=== PATIENT | male | born 1970 | race American Indian/Alaskan Native ===

== ENCOUNTER 2019-11-05 09:45 | Emergency (ER) | payer MEDICARE ==
[2019-11-05 10:06] VITALS: BP 126/81
[2019-11-05 10:48] LABS: Basophils % (Auto) 1.2 % (0.0-1.8); Eosinophils # (Auto) 0.1 K/mm3 (0.0-0.4); Eosinophils % (Auto) 3.6 % (0.0-4.3); Hematocrit 50.8 % (35.5-45.6); Lymphocytes # (Auto) 1.1 K/mm3 (1.2-5.4); Lymphocytes % (Auto) 27.4 % (13.4-35.0); Mean Corpuscular HGB Conc 34 % (32-34); Mean Corpuscular Volume 91 fl (84-94); Monocytes # (Auto) 0.5 K/mm3 (0.0-0.8); Monocytes % (Auto) 12.9 % (0.0-7.3); Platelet Count 281 K/mm3 (140-440); Red Blood Count 5.57 M/mm3 (3.65-5.03); Red Cell Distribution Width 15.9 % (13.2-15.2)
[2019-11-05 11:05] LABS: Alanine Aminotransferase 23 units/L (7-56); Albumin 4.5 g/dL (3.9-5); BUN/Creatinine Ratio 19; Blood Urea Nitrogen 13 mg/dL (9-20); Calcium 9.3 mg/dL (8.4-10.2); Hemolysis Index 24
--- NOTE | 2019-11-05 11:12 | Emergency Department Report ---
ED Abdominal Pain HPI - General Chief Complaint: Abdominal Pain Stated Complaint: ABD PAIN Time Seen by Provider: 11/05/19 10:58 Source: patient Mode of arrival: Wheelchair Limitations: No Limitations - History of Present Illness Initial Comments: 49-year-old [place] male currently under treatment for drug rehabilitation and transfer to [facility] by EMS for abdominal pain was started last night. The pain was started for reasons unknown reports to be sharp and and pressure- like with some bloating noted. No fevers chills or sweats no hemoptysis no hematemesis no hematochezia Complaint: abdominal pain -: Gradual, days(s) (1) Radiation: none Migration to: no migration Severity: mild Consistency: constant Improves With: nothing Worsens With: nothing Associated Symptoms: denies: vomiting, diarrhea, constipation, dysuria, hematochezia, melena, hematuria, anorexia - Related Data Previous Rx's Medication Instructions Recorded Last Taken Type Hyoscyamine Subl [Levsin Sl 0.125 0.125 mg SL Q8HR #14 tab 11/05/19 Unknown Rx TAB] Simethicone [Phazyme] 250 mg PO BID #14 capsule 11/05/19 Unknown Rx Allergies Allergy/AdvReac Type Severity Reaction Status Date / Time No Known Allergies Allergy Unverified 11/05/19 10:03 ED Review of Systems ROS: Stated complaint: ABD PAIN Other details as noted in HPI Comment: All other systems reviewed and negative ED Past Medical Hx - Social History Smoking Status: Current Every Day Smoker Substance Use Type: Cocaine - Medications Home Medications: Home Medications Medication Instructions Recorded Confirmed Last Taken Type Hyoscyamine Subl [Levsin Sl 0.125 0.125 mg SL Q8HR #14 tab 11/05/19 Unknown Rx TAB] Simethicone [Phazyme] 250 mg PO BID #14 capsule 11/05/19 Unknown Rx ED Physical Exam - General Limitations: No Limitations General appearance: alert, in no apparent distress - Head Head exam: Present: atraumatic, normocephalic - Eye Eye exam: Present: normal appearance, PERRL - ENT ENT exam: Present: mucous membranes moist - Neck Neck exam: Present: normal inspection - Respiratory Respiratory exam: Present: normal lung sounds bilaterally. Absent: respiratory distress - Cardiovascular Cardiovascular Exam: Present: regular rate, normal rhythm. Absent: systolic murmur, diastolic murmur, rubs, gallop - GI/Abdominal GI/Abdominal exam: Present: soft, tenderness (To the epigastric region with palpation. No tenderness at McBurney's no Turcios sign. There is no distention. There there is some increased tympany however), normal bowel sounds. Absent: hyperactive bowel sounds, hypoactive bowel sounds, organomegaly, mass, bruit, pulsatile mass, hernia - Rectal Rectal exam: Present: deferred - Extremities Exam Extremities exam: Present: normal inspection - Back Exam Back exam: Present: normal inspection - Neurological Exam Neurological exam: Present: alert, oriented X3 - Psychiatric Psychiatric exam: Present: normal affect, normal mood - Skin Skin exam: Present: warm, dry, intact, normal color. Absent: rash ED Course Vital Signs 11/05/19 10:06 Temperature 97.9 F Pulse Rate 95 H Respiratory 16 Rate Blood Pressure 126/81 [Right] O2 Sat by Pulse 99 Oximetry ED Medical Decision Making - Lab Data Result diagrams: 11/05/19 10:24 11/05/19 10:24 - Medical Decision Making This patient presents with abdominal pain of unclear etiology. A CT scan was performed to evaluate for potential causes of the abdominal pain, however, neither the clinical exam nor the CT has identified an emergent etiology for the abdominal pain. Specifically, given the benign exam, the laboratory studies, and unremarkable CT, I have a very low suspicion for appendicitis, ischemic bowel, bowel perforation, or any other life threatening disease. I have discussed with the patient the level of uncertainty with undifferentiated abdominal pain and clearly explained the need to follow-up as noted on the discharge instructions, or return to the Emergency Department immediately if the pain worsens, develops fever, persistent and uncontrollable vomiting, or for any new symptoms or concerns. Reports a significant improvement of abdominal pain with the flatulence requesting Gas-X Critical care attestation.: If time is entered above; I have spent that time in minutes in the direct care of this critically ill patient, excluding procedure time. ED Disposition Clinical Impression: Abdominal pain Disposition: -01 TO HOME OR SELFCARE Is pt being admited?: No Does the pt Need Aspirin: No Condition: Stable Instructions: Simethicone (By mouth), Abdominal Pain (ED) Prescriptions: Hyoscyamine Subl [Levsin Sl 0.125 TAB] 0.125 mg SL Q8HR #14 tab Simethicone [Phazyme] 250 mg PO BID #14 capsule Referrals: [facility] [Provider Group] - 3-5 Days [facility], [Primary Care Provider] - 3-5 Days
[2019-11-05 12:11] LABS: Bilirubin,Urine NEG (Negative); Blood,Urine NEG (Negative); Color,Urine Straw (Yellow); Protein,Urine <15 mg/dL mg/dL (Negative); Urobilinogen,Urine < 2.0 mg/dL (<2.0); WBC,Urine < 1.0 /HPF (0.0-6.0)
== END 2019-11-05 12:54 | disposition home or self-care (01) ==
LOC: ED 09:45 → EDBD 09:45 → ED 12:54
DX: R10.13 Epigastric pain (principal); F17.200 Nicotine dependence, unspecified, uncomplicated; F14.10 Cocaine abuse, uncomplicated; Z79.899 Other long term (current) drug therapy
CPT/HCPCS: 36415; 80053; 81001; 83690; 85025; 99283

== ENCOUNTER 2020-01-27 17:08 | Emergency (ER) | payer MEDICARE ==
--- NOTE | 2020-01-27 18:04 | Emergency Department Report ---
HPI - General Chief Complaint: Psych Time Seen by Provider: 01/27/20 17:30 - HPI HPI: This is a 49-year-old male who presents to the emergency department with complaint of depression and suicidal ideations. Overall he says that this is been going on for the past month. He has a history of cocaine use/abuse and last used this drug about 3 days ago. He says that this is part of the reason why he is feeling depressed and suicidal as he wants to kick his drug habit. He was previously in [facility] for his substance use/abuse history. He says that at that time he was "trying to do this all on his own." After he was discharged from [facility] he was "back on the street" and "I just have to get off the street." He denies any diagnosed medical or psychiatric history. He denies any previous suicide attempts and does not have any particular plan as to how he would harm himself at this time. He denies any auditory or visual hallucinations or any homicidal ideations. ED Past Medical Hx - Past Medical History Previous Medical History?: No - Surgical History Past Surgical History?: No - Social History Smoking Status: Never Smoker Substance Use Type: None - Medications Home Medications: Home Medications Medication Instructions Recorded Confirmed Last Taken Type Hyoscyamine Subl [Levsin Sl 0.125 0.125 mg SL Q8HR #14 tab 11/05/19 Unknown Rx TAB] Simethicone [Phazyme] 250 mg PO BID #14 capsule 11/05/19 Unknown Rx ED Review of Systems ROS: Stated complaint: SI Other details as noted in HPI Comment: All other systems reviewed and negative Constitutional: denies: chills, fever Eyes: denies: vision change Respiratory: denies: cough, shortness of breath Cardiovascular: denies: chest pain, palpitations Gastrointestinal: denies: abdominal pain Musculoskeletal: denies: back pain Neurological: denies: headache Psychiatric: depression, suicidal thoughts. denies: auditory hallucinations, visual hallucinations, homicidal thoughts Physical Exam - Physical Exam Vital Signs: Vital Signs 01/27/20 17:25 Temperature 98.6 F Pulse Rate 84 Respiratory 18 Rate Blood Pressure 128/85 [Left] O2 Sat by Pulse 95 Oximetry Physical Exam: GENERAL: The patient is well-developed well-nourished. HENT: Normocephalic. Atraumatic. Patient has moist mucous membranes. EYES: Extraocular motions are intact. NECK: Supple. Trachea is midline. CHEST/LUNGS: Clear to auscultation. There is no respiratory distress noted. HEART/CARDIOVASCULAR: Regular. There is no tachycardia. There is no murmur. ABDOMEN: Abdomen is soft, nontender. Patient has normal bowel sounds. SKIN: Skin is warm and dry. NEURO: The patient is awake, alert, and oriented. The patient is cooperative. Normal speech. MUSCULOSKELETAL: There is no tenderness or deformity. There is no evidence of acute injury. ED Course Vital Signs 01/27/20 17:25 Temperature 98.6 F Pulse Rate 84 Respiratory 18 Rate Blood Pressure 128/85 [Left] O2 Sat by Pulse 95 Oximetry ED Medical Decision Making - Lab Data Result diagrams: 01/27/20 17:38 01/27/20 17:38 - Medical Decision Making This patient presents with suicidal ideations and for that reason has been made a 1013 with a ED hold orders placed. Labs are thus far unremarkable except for some hypokalemia that was replaced with potassium chloride. We are waiting for a urine sample for urinalysis and UDS. Patient does not appear acutely intoxicated. If there is a UTI he will be placed on antibiotics. Vital signs been reassuring thus far. He appears medically cleared for psychiatric placement. Critical Care Time: No Critical care attestation.: If time is entered above; I have spent that time in minutes in the direct care of this critically ill patient, excluding procedure time. ED Disposition Clinical Impression: Suicidal ideations, Hypokalemia Disposition: [id number]/TX-[id number] PSY HOSP/PSY UNIT Is pt being admited?: No Condition: Stable Referrals: PRIMARY MD BULL [Primary Care Provider] - 3-5 Days Time of Disposition: 19:08
[2020-01-27 18:05] LABS: Basophils % (Auto) 0.7 % (0.0-1.8); Eosinophils # (Auto) 0.2 K/mm3 (0.0-0.4); Eosinophils % (Auto) 4.4 % (0.0-4.3); Hematocrit 44.3 % (35.5-45.6); Hemoglobin 14.9 gm/dl (11.8-15.2); Lymphocytes # (Auto) 1.8 K/mm3 (1.2-5.4); Lymphocytes % (Auto) 41.2 % (13.4-35.0); Mean Corpuscular HGB Conc 34 % (32-34); Mean Corpuscular Volume 92 fl (84-94); Monocytes # (Auto) 0.5 K/mm3 (0.0-0.8); Monocytes % (Auto) 12.4 % (0.0-7.3); Platelet Count 308 K/mm3 (140-440); Red Blood Count 4.84 M/mm3 (3.65-5.03); Red Cell Distribution Width 15.1 % (13.2-15.2)
[2020-01-27 18:12] LABS: Blood Urea Nitrogen 10 mg/dL (9-20); Calcium 9.3 mg/dL (8.4-10.2); Hemolysis Index 6
[2020-01-27 18:14] LABS: BUN/Creatinine Ratio 14
[2020-01-27] MEDS ORDERED: POTASSIUM CHLORIDE ER 20 MEQ TAB PO ONE (18:47)
[2020-01-27] MEDS ORDERED: IBUPROFEN 800 MG TAB PO ONE (19:32)
[2020-01-27] MEDS ORDERED: ACETAMINOPHEN 325 MG TAB ONE (19:33)
[2020-01-27 21:00] VITALS: BP 104/65
== END 2020-01-27 20:25 ==
LOC: ED 17:08
DX: E87.6 Hypokalemia (principal); R45.851 Suicidal ideations; Z79.899 Other long term (current) drug therapy
CPT/HCPCS: 36415; 80048; 80320; 85025; G0480

== ENCOUNTER 2020-02-25 05:36 | Emergency (ER) | payer MEDICARE ==
[2020-02-25 06:26] LABS: Bilirubin,Urine NEG (Negative); Blood,Urine NEG (Negative); Color,Urine Amber (Yellow); Mucus,Urine 2+ /HPF; Protein,Urine <15 mg/dL mg/dL (Negative); Urobilinogen,Urine < 2.0 mg/dL (<2.0)
[2020-02-25 06:39] LABS: Amphetamine Screen,Urine Negative; Benzodiazepines Screen,Urine Negative; Cannabinoid Screen,Urine Negative; Cocaine Screen,Urine Negative; Methadone Screen,Urine Negative; Opiate Screen,Urine Negative
[2020-02-25 07:46] LABS: Basophils % (Auto) 0.6 % (0.0-1.8); Eosinophils # (Auto) 0.2 K/mm3 (0.0-0.4); Hematocrit 48.2 % (35.5-45.6); Hemoglobin 16.3 gm/dl (11.8-15.2); Lymphocytes % (Auto) 29.5 % (13.4-35.0); Mean Corpuscular HGB Conc 34 % (32-34); Mean Corpuscular Volume 92 fl (84-94); Monocytes % (Auto) 13.9 % (0.0-7.3); Platelet Count 354 K/mm3 (140-440); Red Blood Count 5.22 M/mm3 (3.65-5.03); Red Cell Distribution Width 15.1 % (13.2-15.2)
[2020-02-25 08:10] LABS: Blood Urea Nitrogen 19 mg/dL (9-20); Calcium 9.9 mg/dL (8.4-10.2); Hemolysis Index 11
[2020-02-25 08:12] LABS: BUN/Creatinine Ratio 32
[2020-02-25] MEDS ORDERED: IBUPROFEN 400 MG TAB PO ONE (09:20)
[2020-02-25] MEDS ORDERED: ACETAMINOPHEN 325 MG TAB PO ONE (09:20)
--- NOTE | 2020-02-25 09:20 | Emergency Department Report ---
ED General Adult HPI - General Chief complaint: Medical Clearance Stated complaint: MEDICAL CLEARANCE PUI?: No Time Seen by Provider: 02/25/20 08:43 Source: patient, RN notes reviewed, old records reviewed Mode of arrival: Ambulatory Limitations: No Limitations - History of Present Illness Initial comments: The patient was evaluated in the emergency department for symptoms described in the history of present illness. He/she was evaluated in the context of the global COVID-19 pandemic, which necessitated consideration that the patient might be at risk for infection with the virus that causes COVID-19. Institutional protocols and algorithms that pertain to the evaluation of patients at risk for COVID-19 are in a state of rapid change based on information released by regulatory bodies including the CDC and federal and [facility] organizations. These policies and algorithms were followed during the patient's care in the emergency department. Please note that these policies, procedures and recommendations changed on a rapid basis. Patient is a pleasant and calm 49-year-old gentleman. The patient is at an outpatient facility for cocaine detox and rehabilitation. He is sent to the emergency room for medical clearance. Apparently, the patient had a urine screening drug test which demonstrated presence of cocaine. The patient denies acute pain. He has chronic extremity pain. He is not homicidal or suicidal. H e does not have hallucinations. He denies headache, neck pain, chest pain, abdominal pain, shortness of breath, dysuria. He has no acute complaints at this time. Improves with: none Worsens with: none Associated Symptoms: other (Chronic chronic musculoskeletal pain) - Related Data Previous Rx's Medication Instructions Recorded Last Taken Type Hyoscyamine Subl [Levsin Sl 0.125 0.125 mg SL Q8HR #14 tab 11/05/19 Unknown Rx TAB] Simethicone [Phazyme] 250 mg PO BID #14 capsule 11/05/19 Unknown Rx Allergies Allergy/AdvReac Type Severity Reaction Status Date / Time No Known Allergies Allergy Unverified 11/05/19 10:03 ED Review of Systems ROS: Stated complaint: MEDICAL CLEARANCE Other details as noted in HPI Constitutional: denies: fever Eyes: denies: eye discharge ENT: denies: epistaxis Respiratory: denies: cough Cardiovascular: denies: chest pain Gastrointestinal: denies: abdominal pain Genitourinary: denies: dysuria Musculoskeletal: arthralgia, myalgia Skin: denies: lesions Neurological: denies: weakness Psychiatric: denies: homicidal thoughts, suicidal thoughts ED Past Medical Hx - Past Medical History Previous Medical History?: No - Surgical History Past Surgical History?: Yes Additional Surgical History: ankle - Social History Smoking Status: Current Every Day Smoker Substance Use Type: Cocaine - Medications Home Medications: Home Medications Medication Instructions Recorded Confirmed Last Taken Type Hyoscyamine Subl [Levsin Sl 0.125 0.125 mg SL Q8HR #14 tab 11/05/19 Unknown Rx TAB] Simethicone [Phazyme] 250 mg PO BID #14 capsule 11/05/19 Unknown Rx ED Physical Exam - General Limitations: No Limitations General appearance: alert, in no apparent distress - Head Head exam: Present: atraumatic, normocephalic - Eye Eye exam: Present: normal appearance, PERRL, EOMI. Absent: nystagmus - ENT ENT exam: Present: normal exam, normal orophraynx, mucous membranes moist, normal external ear exam - Neck Neck exam: Present: normal inspection, full ROM. Absent: tenderness, meningismus - Respiratory Respiratory exam: Present: normal lung sounds bilaterally. Absent: respiratory distress, wheezes, rales, rhonchi, stridor, decreased breath sounds - Cardiovascular Cardiovascular Exam: Present: regular rate, normal rhythm, normal heart sounds. Absent: bradycardia, tachycardia, irregular rhythm, systolic murmur, diastolic murmur, rubs, gallop - GI/Abdominal GI/Abdominal exam: Present: soft, normal bowel sounds. Absent: distended, tenderness, guarding, rebound, rigid, pulsatile mass - Rectal Rectal exam: Present: deferred - Extremities Exam Extremities exam: Present: normal inspection, full ROM, other (2+ pulses noted in the bilateral upper and lower extremities. There is no palpable cord. negative Homans sign. Muscular compartments are soft. The pelvis is stable.). Absent: pedal edema, calf tenderness - Back Exam Back exam: Present: normal inspection, full ROM. Absent: tenderness, CVA tenderness (R), CVA tenderness (L), paraspinal tenderness, vertebral tenderness - Neurological Exam Neurological exam: Present: alert, oriented X3, normal gait, other (No facial droop. Tongue midline. Extraocular movements intact bilaterally. Facial sensation intact to light touch in V1, V2, V3 distribution bilaterally. 5 and a 5 strength in 4 extremities. Sensation intact to light touch in 4 extremi ties.). Absent: motor sensory deficit - Psychiatric Psychiatric exam: Present: normal affect, normal mood. Absent: homicidal ideation, suicidal ideation - Skin Skin exam: Present: warm, dry, intact, normal color. Absent: rash ED Course Vital Signs 02/25/20 05:40 Temperature 97.7 F Pulse Rate 91 H Respiratory 16 Rate Blood Pressure 118/58 O2 Sat by Pulse 97 Oximetry ED Medical Decision Making - Lab Data Result diagrams: 02/25/20 06:38 02/25/20 06:38 Vital Signs 02/25/20 05:40 Temperature 97.7 F Pulse Rate 91 H Respiratory 16 Rate Blood Pressure 118/58 O2 Sat by Pulse 97 Oximetry Lab Results 02/25/20 02/25/20 02/25/20 Range/Units 06:38 06:38 06:38 WBC (4.5-11.0) K/mm3 RBC (3.65-5.03) M/mm3 Hgb (11.8-15.2) gm/dl Hct (35.5-45.6) % MCV (84-94) fl MCH (28-32) pg MCHC (32-34) % RDW (13.2-15.2) % Plt Count (140-440) K/mm3 Lymph % (Auto) (13.4-35.0) % Brule % (Auto) (0.0-7.3) % Eos % (Auto) (0.0-4.3) % Baso % (Auto) (0.0-1.8) % Lymph # (1.2-5.4) K/mm3 Brule # (0.0-0.8) K/mm3 Eos # (0.0-0.4) K/mm3 Baso # (0.0-0.1) K/mm3 Seg Neutrophils % (40.0-70.0) % Seg Neutrophils # (1.8-7.7) K/mm3 Sodium 144 (137-145) mmol/L Potassium 4.2 (3.6-5.0) mmol/L Chloride 102.9 (98-107) mmol/L Carbon Dioxide 26 (22-30) mmol/L Anion Gap 19 mmol/L BUN 19 (9-20) mg/dL Creatinine 0.6 L (0.8-1.3) mg/dL Estimated GFR > 60 ml/min BUN/Creatinine Ratio 32 % Glucose 91 (75-100) mg/dL Calcium 9.9 (8.4-10.2) mg/dL Urine Color (Yellow) Urine Turbidity (Clear) Urine pH (5.0-7.0) Ur Specific [place] (1.003-1.030) Urine Protein (Negative) mg/dL Urine Glucose (UA) (Negative) mg/dL Urine Ketones (Negative) mg/dL Urine Blood (Negative) Urine Nitrite (Negative) Urine Bilirubin (Negative) Urine Urobilinogen (<2.0) mg/dL Ur Leukocyte Esterase (Negative) Urine WBC (Auto) (0.0-6.0) /HPF Urine RBC (Auto) (0.0-6.0) /HPF Urine Mucus /HPF Urine Yeast (Budding) /HPF Salicylates < 0.3 L (2.8-20.0) mg/dL Urine Opiates Screen Urine Methadone Screen Acetaminophen 5.0 L (10.0-30.0) ug/mL Ur Barbiturates Screen Ur Phencyclidine Scrn Ur Amphetamines Screen U Benzodiazepines Scrn Urine Cocaine Screen U Marijuana (THC) Screen Drugs of Abuse Note Plasma/Serum Alcohol (0-0.07) % 02/25/20 02/25/20 02/25/20 Range/Units 06:38 06:38 Unknown WBC 6.9 (4.5-11.0) K/mm3 RBC 5.22 H (3.65-5.03) M/mm3 Hgb 16.3 H (11.8-15.2) gm/dl Hct 48.2 H (35.5-45.6) % MCV 92 (84-94) fl MCH 31 (28-32) pg MCHC 34 (32-34) % RDW 15.1 (13.2-15.2) % Plt Count 354 (140-440) K/mm3 Lymph % (Auto) 29.5 (13.4-35.0) % Brule % (Auto) 13.9 H (0.0-7.3) % Eos % (Auto) 3.0 (0.0-4.3) % Baso % (Auto) 0.6 (0.0-1.8) % Lymph # 2.0 (1.2-5.4) K/mm3 Brule # 1.0 H (0.0-0.8) K/mm3 Eos # 0.2 (0.0-0.4) K/mm3 Baso # 0.0 (0.0-0.1) K/mm3 Seg Neutrophils % 53.0 (40.0-70.0) % Seg Neutrophils # 3.7 (1.8-7.7) K/mm3 Sodium (137-145) mmol/L Potassium (3.6-5.0) mmol/L Chloride (98-107) mmol/L Carbon Dioxide (22-30) mmol/L Anion Gap mmol/L BUN (9-20) mg/dL Creatinine (0.8-1.3) mg/dL Estimated GFR ml/min BUN/Creatinine Ratio % Glucose (75-100) mg/dL Calcium (8.4-10.2) mg/dL Urine Color [place] (Yellow) Urine Turbidity Slightly-cloudy (Clear) Urine pH 7.0 (5.0-7.0) Ur Specific [place] 1.025 (1.003-1.030) Urine Protein <15 mg/dl (Negative) mg/dL Urine Glucose (UA) Neg (Negative) mg/dL Urine Ketones Neg (Negative) mg/dL Urine Blood Neg (Negative) Urine Nitrite Pos (Negative) Urine Bilirubin Neg (Negative) Urine Urobilinogen < 2.0 (<2.0) mg/dL Ur Leukocyte Esterase Neg (Negative) Urine WBC (Auto) 0.0 (0.0-6.0) /HPF Urine RBC (Auto) 15.0 (0.0-6.0) /HPF Urine Mucus 2+ /HPF Urine Yeast (Budding) 3+ /HPF Salicylates (2.8-20.0) mg/dL Urine Opiates Screen Urine Methadone Screen Acetaminophen (10.0-30.0) ug/mL Ur Barbiturates Screen Ur Phencyclidine Scrn Ur Amphetamines Screen U Benzodiazepines Scrn Urine Cocaine Screen U Marijuana (THC) Screen Drugs of Abuse Note Plasma/Serum Alcohol < 0.01 (0-0.07) % 02/25/20 Range/Units Unknown WBC (4.5-11.0) K/mm3 RBC (3.65-5.03) M/mm3 Hgb (11.8-15.2) gm/dl Hct (35.5-45.6) % MCV (84-94) fl MCH (28-32) pg MCHC (32-34) % RDW (13.2-15.2) % Plt Count (140-440) K/mm3 Lymph % (Auto) (13.4-35.0) % Brule % (Auto) (0.0-7.3) % Eos % (Auto) (0.0-4.3) % Baso % (Auto) (0.0-1.8) % Lymph # (1.2-5.4) K/mm3 Brule # (0.0-0.8) K/mm3 Eos # (0.0-0.4) K/mm3 Baso # (0.0-0.1) K/mm3 Seg Neutrophils % (40.0-70.0) % Seg Neutrophils # (1.8-7.7) K/mm3 Sodium (137-145) mmol/L Potassium (3.6-5.0) mmol/L Chloride (98-107) mmol/L Carbon Dioxide (22-30) mmol/L Anion Gap mmol/L BUN (9-20) mg/dL Creatinine (0.8-1.3) mg/dL Estimated GFR ml/min BUN/Creatinine Ratio % Glucose (75-100) mg/dL Calcium (8.4-10.2) mg/dL Urine Color (Yellow) Urine Turbidity (Clear) Urine pH (5.0-7.0) Ur Specific [place] (1.003-1.030) Urine Protein (Negative) mg/dL Urine Glucose (UA) (Negative) mg/dL Urine Ketones (Negative) mg/dL Urine Blood (Negative) Urine Nitrite (Negative) Urine Bilirubin (Negative) Urine Urobilinogen (<2.0) mg/dL Ur Leukocyte Esterase (Negative) Urine WBC (Auto) (0.0-6.0) /HPF Urine RBC (Auto) (0.0-6.0) /HPF Urine Mucus /HPF Urine Yeast (Budding) /HPF Salicylates (2.8-20.0) mg/dL Urine Opiates Screen Negative Urine Methadone Screen Negative Acetaminophen (10.0-30.0) ug/mL Ur Barbiturates Screen Negative Ur Phencyclidine Scrn Negative Ur Amphetamines Screen Negative U Benzodiazepines Scrn Negative Urine Cocaine Screen Negative U Marijuana (THC) Screen Negative Drugs of Abuse Note Disclamer Plasma/Serum Alcohol (0-0.07) % - Medical Decision Making Differential diagnosis, including but not limited to: General medical evaluation, chronic arthritis, history of cocaine dependence Assessment and plan: 49-year-old gentleman with a reported history of cocaine dependence, who is no acute complaints at this time, who is clinically sober, with a GCS of 15, with no evidence of acute injury, resting comfortably in his stretcher, and in no acute distress. Physical exam benign and unremarkable. Laboratory studies reviewed and appreciated. Urinalysis reviewed and appreciated. Patient not symptomatic at this time. Patient does not meet criteria for 1013 or involuntary hold at this time. He does not appear to have an emergent medical condition at this time. Patient medically suitable for discharge, he can follow-up with an outpatient primary care doctor for incidental abnormal nonemergent findings Critical care attestation.: If time is entered above; I have spent that time in minutes in the direct care of this critically ill patient, excluding procedure time. ED Disposition Clinical Impression: General medical exam Disposition: DC-01 TO HOME OR SELFCARE Is pt being admited?: No Does the pt Need Aspirin: No Condition: Stable Additional Instructions: Please continue current outpatient medications. Patient may take [id number] Tylenol, and/or [id number] ibuprofen as needed for pain. Please avoid consumption of alcohol, tobacco, and recreational drugs/cocaine. Please follow-up with your primary care doctor within the next 2 to 3 weeks. Laboratory findings today demonstrated no emergent condition, however, nonemergent incidental abnormal findings were noted, which should be followed up by a primary care doctor. Please have your primary care doctor contact the medical records department to obtain these results. Please return to the emergency room right away with new pain, worsening pain, migration of pain, projectile vomiting, change in mental status, confusion, inability to tolerate liquid feeds, new, worsened or different symptoms not present on the initial emergency room evaluation. At this point time, patient does not have an emergent medical condition that precludes discharge, or precludes readmission into his outpatient detox program. Referrals: VELASQUEZ LANGLEY MD [Staff Physician] - 3-5 Days [facility] [Provider Group] - 3-5 Days
[2020-02-25] MEDS ORDERED: FLUCONAZOLE 100 MG TAB PO NR (10:30)
[2020-02-25 12:38] VITALS: BP 93/61
== END 2020-02-25 12:40 | disposition home or self-care (01) ==
LOC: ED 05:36
DX: M79.18 Myalgia, other site (principal); Z00.00 Encounter for general adult medical examination without abnormal findings; F17.200 Nicotine dependence, unspecified, uncomplicated; F14.10 Cocaine abuse, uncomplicated; Z98.890 Other specified postprocedural states; Z79.899 Other long term (current) drug therapy
CPT/HCPCS: 36415; 80048; 80307; 80320; 81001; 82550; 83735; 85025; G0480